=== PATIENT | male | born 1985 | race African-American/Black ===

== ENCOUNTER 2017-04-15 04:51 | Emergency (ER) | payer OTHER ==
--- NOTE | 2017-04-15 05:51 | ED Physician Documentation ---
PD HPI BACK PAIN - Stated complaint Stated Complaint: BACK PAIN NON TRAUMATIC - Chief complaint Chief Complaint: Back Pain - History obtained from History obtained from: Patient - History of Present Illness Timing - onset: How many days ago (3) Timing - duration: Days Timing - details: Abrupt onset, Waxing and waning Pain level now: 6 Location: Lower, Right, Left Quality: Pain, Similar to prior episodes Associated symptoms: No: Fever, Weakness, Numbness, Incontinent of urine, Unable to urinate, Hematuria, Incontinent of stool Improves with: Rest Worsened by: Movement Similar symptoms before: Other (previous eimilar episodes without specific diagnosis) Recently seen: Not recently seen - Additional information Additional information: c/o 3 days of LBP, sudden onset when he coughed. distinctly worse with movement. Review of Systems Constitutional: denies: Fever GI: denies: Abdominal Pain : denies: Unable to Void, Incontinent Musculoskeletal: reports: Back pain Neurologic: denies: Focal weakness, Numbness PD PAST MEDICAL HISTORY - Past Medical History Past Medical History: Yes Musculoskeletal: Chronic back pain - Past Surgical History Past Surgical History: Yes - Present Medications Home Medications: Ambulatory Orders Medication Instructions Recorded Confirmed Cyclobenzaprine [Flexeril] 10 mg PO TID PRN #20 tablet 04/15/17 Hydrocodone/Acetaminophen 1 - 2 each PO Q6HR PRN #14 tablet 04/15/17 [Hydrocodon-Acetaminophen 5-325] - Allergies Allergies/Adverse Reactions: Allergies Allergy/AdvReac Type Severity Reaction Status Date / Time No Known Drug Allergies Allergy Verified 04/15/17 04:56 - Social History Does the pt smoke?: Yes Smoking Status: Current every day smoker Does the pt drink ETOH?: Yes Does the pt have substance abuse?: No - Immunizations Immunizations are current?: No - POLST Patient has POLST: No PD ED PE NORMAL - Vitals Vital signs reviewed: Yes - General General: Alert and oriented X 3, No acute distress, Well developed/nourished - Back Back: No CVA TTP, No spinal TTP - Derm Derm: Normal color, Warm and dry, No rash - Extremities Extremities: No tenderness to palpate, Normal ROM s pain - Neuro Neuro: No motor deficit, No sensory deficit Results - Vitals Vitals: Vital Signs - 24 hr 04/15/17 04/15/17 04:56 06:49 Temperature 36.7 C 36.5 C Heart Rate 64 70 Respiratory 18 18 Rate Blood Pressure 146/91 H 121/68 O2 Saturation 100 99 Oxygen O2 Source Room air PD MEDICAL DECISION MAKING - ED course Complexity details: considered differential, d/w patient ED course: sounds like exacerbation of LBP he has previously experienced, although without particular frequency. description is s/o musculoskeletal LBP and exam does not suggest alternative diagnoses. no red flags and patient was not asking for, nor quick to accept, opiate rx. He was agreeable to taking rx for vicodin and flexeril to have on hand should steroids and NSAIDs prove ineffective for this episode. Departure - Departure Disposition: 01 Home, Self Care Clinical Impression: Back pain Condition: Good Instructions: ED Sciatica Follow-Up: [facility] [Provider Group] [facility] [Provider Group] Prescriptions: Hydrocodone/Acetaminophen [Hydrocodon-Acetaminophen 5-325] 1 - 2 each PO Q6HR PRN #14 tablet PRN Reason: Severe Pain Cyclobenzaprine [Flexeril] 10 mg PO TID PRN #20 tablet PRN Reason: Spasms Forms: Activity restrictions Discharge Date/Time: 04/15/17 06:49
[2017-04-15] MEDS ORDERED: DEXAMETHASONE 10 MG/ML VIAL PO STA (06:28)
[2017-04-15] MEDS ORDERED: IBUPROFEN 600 MG TABLET PO STA (06:28)
[2017-04-15] MEDS ORDERED: CHERRY SYRUP 10 ML UDC PO ONE (06:41)
[2017-04-15] MEDS ORDERED: DEXAMETHASONE 10 MG/ML VIAL ONE (06:41)
[2017-04-15] MEDS ORDERED: IBUPROFEN 600 MG TABLET PO ONE (06:41)
[2017-04-15 06:51] VITALS: BP 121/68
== END 2017-04-15 06:49 | disposition home or self-care (01) ==
LOC: ED 04:51
DX: M54.5 Low back pain (principal); G89.29 Other chronic pain; F17.200 Nicotine dependence, unspecified, uncomplicated
CPT/HCPCS: 99283

== ENCOUNTER 2017-12-11 23:18 | Emergency (ER) | payer OTHER ==
[2017-12-11 23:59] LABS: BASOPHILS % (AUTO) 0.4 %; EOSINOPHILS # (AUTO) 0.2 10^3/uL (0.0-0.7); EOSINOPHILS % (AUTO) 2.8 %; HGB - HEMOGLOBIN 15.2 g/dL (14.0-18.0); LYMPHOCYTES % (AUTO) 25.3 %; MEAN CORPUSCULAR VOLUME 87.8 fL (80.0-94.0); MEAN PLATELET VOLUME 9.1 fL (7.4-11.4); MONOCYTES # (AUTO) 0.5 10^3/uL (0.0-1.0); NEUTROPHILS % (AUTO) 64.5 %; PLT - PLATELET COUNT 181 10^3/uL (130-450); RED BLOOD COUNT 5.25 10^6/uL (4.70-6.10); RED CELL DISTRIBUTION WIDTH 14.1 % (12.0-15.0); WHITE BLOOD COUNT 7.8 x10^3/uL (4.8-10.8)
[2017-12-12 00:14] LABS: ALBUMIN 4.4 g/dL (3.2-5.5); ALBUMIN/GLOBULIN RATIO 1.2 (1.0-2.2); ALKALINE PHOSPHATASE 58 IU/L (42-121); ALT ALANINE AMINOTRANSFERASE 32 IU/L (10-60); AST ASPARTATE AMINOTRANSFERASE 30 IU/L (10-42); BILIRUBIN,TOTAL 0.6 mg/dL (0.2-1.0); BUN - BLOOD UREA NITROGEN 17 mg/dL (6-20); CALCIUM 9.2 mg/dL (8.5-10.3); CARBON DIOXIDE - CO2 25 mmol/L (21-32); CHLORIDE 103 mmol/L (101-111); GFR - MDRD 106 (>89); GLUCOSE 94 mg/dL (70-100); LIPASE 35 U/L (22-51); SALICYLATE < 6.0 mg/dL; SODIUM 137 mmol/L (135-145)
[2017-12-12 00:16] LABS: ACETAMINOPHEN < 10 ug/mL (10-30)
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
[2017-12-12 01:05] LABS: MUDS CUTOFF CONCENTRATIONS CUTOFF CONC BELOW:
[2017-12-12] MEDS ORDERED: LORazepam 0.5 MG TABLET PO STA (01:05)
[2017-12-12 01:26] LABS: AMPHETAMINE SCREEN,URINE NEGATIVE (NEGATIVE); BENZODIAZEPINES SCREEN, URINE NEGATIVE (NEGATIVE); COCAINE SCREEN URINE NEGATIVE (NEGATIVE); METHADONE SCREEN, URINE NEGATIVE (NEGATIVE); METHAMPHETAMINES SCREEN, URINE NEGATIVE (NEGATIVE); OPIATE SCREEN, URINE NEGATIVE (NEGATIVE); OXYCODONE SCREEN, URINE NEGATIVE (NEGATIVE); PROPOXYPHENE SCREEN, URINE NEGATIVE (NEGATIVE); TRICYCLIC ANTIDEPRESSANT,URINE NEGATIVE (NEGATIVE)
[2017-12-12] MEDS ORDERED: TETANUS/DIPHTHERIA/PERTUSSIS 0.5 ML SYRINGE IM ONE (06:35)
[2017-12-12] MEDS ORDERED: BACITRACIN OINT TOP STA (07:28)
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
[2017-12-12] MEDS ORDERED: LIDOCAINE 2%-EPI 1:100000 20 ML MDV SUBQ STA (09:42)
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
[2017-12-12] MEDS ORDERED: ACETAMINOPHEN 325 MG TABLET PO STA (16:09)
[2017-12-12 16:17] VITALS: BP 127/75
[2017-12-12] MEDS ORDERED: NICOTINE 7 MG PATCH TOP SCH (17:00)
== END 2017-12-12 17:40 ==
LOC: ED 23:18
DX: R45.851 Suicidal ideations (principal); F32.9 Major depressive disorder, single episode, unspecified; S01.04XA Puncture wound with foreign body of scalp, initial encounter; S70.10XA Contusion of unspecified thigh, initial encounter; X74.01XA Intentional self-harm by airgun, initial encounter; F17.200 Nicotine dependence, unspecified, uncomplicated
CPT/HCPCS: 10120; 36415; 70250; 70450; 80053; 80306; 80307; 80320; 80329; 83690; 85025; 90471; 90715; 99283; 99284; A9270

== ENCOUNTER 2018-07-24 19:57 | Outpatient (CLI) | payer OTHER | END 2018-07-24 19:58 | disposition critical access hospital (66) | LOC: EMS 19:57 | PROVIDERS: ATTEND Surgery | DX: R45.851 Suicidal ideations (principal) | CPT/HCPCS: A0425; A0429 ==